=== PATIENT | female | born 1965 | race Caucasian/White ===

== ENCOUNTER → 2018-03-04 09:36 | Outpatient (CLI) | payer OTHER, SELFPAY ==
[2018-03-04 10:14] LABS: Influenza A and B by PCR Rapid Negative (Negative)
== END ==
PROVIDERS: PCP Family Medicine; Visit Provider Physician Assistant
DX: R50.9 Fever, unspecified (principal)
CPT/HCPCS: 87400

== ENCOUNTER → 2018-03-06 09:26 | Outpatient (CLI) | payer OTHER, SELFPAY | PROVIDERS: PCP Family Medicine; Visit Provider Family Medicine | DX: R23.8 Other skin changes (principal) | CPT/HCPCS: 87252 ==

== ENCOUNTER 2018-06-29 03:55 | Emergency (ER) | payer OTHER, SELFPAY ==
[2018-06-29 04:03] VITALS: BMI 29.2
[2018-06-29 04:04] VITALS: BP 158/85; PULSE 65; RESP 20; TEMP 36.6; O2SAT 97
--- NOTE | 2018-06-29 04:12 | DI.CT.S_ITS ---
PROCEDURE: CT ABDOMEN PELVIS W CON INDICATIONS: severe abdominal pain, mostly upper TECHNIQUE: After the administration of intravenous contrast, 5 mm thick sections acquired from the diaphragm to the symphysis. 5 mm coronal and sagittal reformats were acquired. For radiation dose reduction, the following was used: automated exposure control, adjustment of mA and/or kV according to patient size. COMPARISON: None. FINDINGS: Image quality: Excellent. ABDOMEN: Lung bases: Lung bases are clear. Heart size is normal. Solid organs: Diffuse fatty infiltration of the liver. Gallbladder negative. Biliary system is non dilated. Pancreas enhances normally. Spleen is normal in size and enhancement. No adrenal nodules. Kidneys demonstrate normal size and enhancement, without hydronephrosis. Peritoneum and bowel: Bowel loops demonstrate normal wall thickness and caliber. No free fluid or air. Nodes and vessels: No retroperitoneal or mesenteric adenopathy by size criteria. Aorta and inferior vena cava are normal in size. Miscellaneous: No ventral hernias. PELVIS: Genitourinary: Bladder wall thickness is normal. Miscellaneous: No inguinal hernias or adenopathy. Bones: No suspicious bony lesions. No vertebral body compression fractures. Lower lumbar spondylosis, with presumed early multiple small Schmorl's nodes IMPRESSION: No acute process. Normal appendix. No specific visualized etiology for upper abdominal pain. Hepatic steatosis. Additional chronic and incidental findings as above. Dictated by: Jc Peña M.D. on 06/29/2018 at 8:09 Approved by: Jc Peña M.D. on 06/29/2018 at 8:15
[2018-06-29] MEDS: HYDROMORPHONE 1 MG INJ 0.5 MG IV ×3 (04:15→07:27)
[2018-06-29] MEDS: SODIUM CHLORIDE 0.9% 1,000 ML 150 ML IV (04:16)
--- NOTE | 2018-06-29 04:17 | ED_ITS ---
HPI - Abdominal Pain General Chief Complaint: Abdominal Pain Stated Complaint: woke up with stabbing pain back and abd Time Seen by Provider: 06/29/18 04:07 Source: patient Mode of arrival: ambulatory Limitations: no limitations History of Present Illness HPI narrative: Patient is a 52-year-old female who presents with severe abdominal pain. He states it woke her from her sleep it is all across her abdomen radiating through to her back. His she has some nausea no vomiting the pain is quite intense. Never had anything like this in the past. She was fine when she went to bed. She had some was on and a salad at a restaurant for dinner. The pain is intense she is crying. MD complaint: abdominal pain Pain Consistency: constant Location: epigastric Severity: severe Severity scale (1-10): 10 Quality: stabbing Radiation: back Migration to: no migration Relieving factors: nothing Exacerbating factors: nothing Related Data Previous Rx's Medication Instructions Recorded hydrocodone-acetaminophen [[place]] 1 tab PO Q4-6H PRN #10 tab 06/29/18 Allergies Allergy/AdvReac Type Severity Reaction Status Date / Time psuedophedrine Allergy Unknown Uncoded 03/21/18 09:11 Review of Systems Review of Systems GENERAL: Denies chills, fatigue, malaise, fever, sweats, travel HEENT: Denies sinus pain, ear pain, sore throat, difficulty swallowing, neck pain RESPIRATORY: Denies dyspnea, cough, wheezing, hemoptysis, sputum. CARDIOVASCULAR: Denies chest pain, palpitations, orthopnea, edema GASTROINTESTINAL: HPI : Denies dysuria, frequency, incontinence, hematuria, urinary retention, flank pain. MUSCULOSKELETAL: Denies weakness, joint pain, or bony pain SKIN: No rash, no erythema, no pruritus NEUROLOGIC: Denies weakness, dizziness, headache, numbness, change in speech, confusion PSYCHIATRIC: No concerning psychosocial issues. 12 point review of systems is negative except for those stated above and HPI PFSH Family History (Updated 10/16/16 @ 00:00 by Conversion Provider) Father Age: 81 Epilepsy Social History Smoking Status: Never smoker Exam Initial Vital Signs Initial Vital Signs: Vital Signs Temperature 97.8 F 06/29/18 04:04 Pulse Rate 65 06/29/18 04:04 Respiratory Rate 20 06/29/18 04:04 Blood Pressure 158/85 H 06/29/18 04:04 Pulse Oximetry 97 06/29/18 04:04 GENERAL: Patient appears in pain tearful and in no acute distress. HEENT: Head atraumatic,EOMI, pupils reactive, face symmetric, mucous membranes CARDIOVASCULAR: Regular rate and rhythm without murmurs, rubs or gallops. RESPIRATORY: Breath sounds equal bilaterally, no wheezes rales or rhonchi. ABDOMEN: Soft, severe tenderness across the epigastric and umbilical region. No real lower abdominal tenderness no guarding no rebound : No CVA tenderness EXTREMITIES: Normal range of motion, no clubbing or edema. Neurovascularly intact NEUROLOGICAL: Alert and oriented x4.Normal gait and speech. Cranial nerves II through XII grossly intact. SKIN: Warm, dry, no laceration, no petechiae, no rashes or lesions. Course Orders Ordered: Discontinued Medications Hydromorphone HCl (Dilaudid) 0.5 mg IV NOW ONE Stop: 06/29/18 04:13 Last Admin: 06/29/18 04:15 Dose: 0.5 mg Hydromorphone HCl (Dilaudid) 0.5 mg IV NOW ONE Stop: 06/29/18 05:42 Last Admin: 06/29/18 05:46 Dose: 0.5 mg Hydromorphone HCl (Dilaudid) 0.5 mg IV NOW ONE Stop: 06/29/18 07:27 Last Admin: 06/29/18 07:27 Dose: 0.5 mg Sodium Chloride (Normal Saline 0.9%) 1,000 mls @ 150 mls/hr IV CONT APPLE Last Infusion: 06/29/18 07:57 Dose: 0 mls/hr Admin: 06/29/18 04:16 Dose: 150 mls/hr Ondansetron HCl (Zofran) 4 mg IV NOW ONE Stop: 06/29/18 04:13 Last Admin: 06/29/18 05:45 Dose: 4 mg Pantoprazole Sodium (Protonix) 40 mg IV NOW ONE Stop: 06/29/18 05:42 Last Admin: 06/29/18 05:48 Dose: 40 mg Vital Signs - 8 hr 06/29/18 04:04 06/29/18 07:04 Temperature 97.8 F 97.5 F L Pulse Rate 65 58 L Respiratory Rate 20 15 Blood Pressure [Left Arm] 158/85 H 130/56 L Pulse Oximetry 97 100 MDM - Abdominal Pain Lab Data Attestation: I reviewed the patient's lab results. Result diagrams: 06/29/18 04:05 06/29/18 04:05 Lab Results 06/29/18 06/29/18 Range/Units 04:05 04:05 WBC 9.6 (4.5-11.0) X10^3/uL RBC 5.08 (4.0-5.2) X10^6/uL Hgb 14.9 (12.0-16.0) g/dL Hct 44.1 (36-46) % MCV 86.7 (80-100) fL MCH 29.3 (26-34) PG MCHC 33.7 (30-36) % RDW 12.8 (11.6-14.8) % Plt Count 345 (150-400) X10^3/uL Neut % (Auto) 55.4 (50-75) % Lymph % (Auto) 35.8 (25-40) % Morton % (Auto) 6.1 (3-14) % Eos % (Auto) 2.0 (2-4) % Baso % (Auto) 0.7 (0-2) % Neut # (Auto) 5300 (9900-9114) /uL Lymph # (Auto) 3400 (0375-1850) /uL Morton # (Auto) 600 (0-900) /uL Eos # (Auto) 200 (0-450) /uL Baso # (Auto) 100 (0-100) /uL Sodium 141 (137-145) mmol/L Potassium 4.0 (3.4-5.1) mmol/L Chloride 103 (98-107) mmol/L Carbon Dioxide 28 (22-32) mmol/L BUN 20 H (7-17) mg/dL Creatinine 1.00 (0.52-1.04) mg/dL Estimated GFR 58.5 L (>60) mL/min BUN/Creatinine Ratio 20.0 (6-22) Glucose 103 H (70-100) mg/dL Calcium 9.4 (8.4-10.2) mg/dL Total Bilirubin 0.4 (0.2-1.3) mg/dL AST 33 (14-36) IU/L ALT 48 (9-52) IU/L Alkaline Phosphatase 209 H (38-126) U/L Total Protein 8.0 (6.3-8.2) g/dL Albumin 4.7 (3.5-5.0) g/dL Globulin 3.3 (1.7-4.1) g/dL Albumin/Globulin Ratio 1.4 (1.0-2.8) Lipase 199 (23-300) U/L Point of care testing: Urine Dip Bedside Urine Glucose Negative Bedside Urine Bilirubin - Negative Bedside Urine Ketone - Negative Urine Specific [place] 1.015 Bedside Urine Occult Blood - Negative Bedside Urine pH 6.0 Bedside Urine Protein - Negative Bedside Urine Urobilinogen - Negative Bedside Urine Nitrite - Negative Bedside Urine Leukocytes - Negative Esterase Imaging Data CT scan - abdomen: Radiologist's impression: retail shift supervisor report: No evidence of colitis diverticulitis bowel obstruction obstructive uropathy or acute appendicitis. Hepatic steatosis. The gallbladder pancreas spleen and adrenal glands and kidneys are normal. US - abdomen: Radiologist's impression: Patient report: Hepatic steatosis and the hepatomegaly. Cholelithiasis MDM Narrative Medical decision making narrative: Patient is still having some discomfort given [place] to go home with. She does have gallstones but no signs of acute cholelithiasis or any blockage. I discussed at this time she will need elective surgery. I discussed warning signs and when to return to the ED. Discharge Plan Departure Patient Disposition: Home Clinical Impression: Cholelithiasis Qualifiers: Cholelithiasis location: gallbladder Cholecystitis presence: without cholecystitis Biliary obstruction: without biliary obstruction Qualified Code(s): K80.20 - Calculus of gallbladder without cholecystitis without obstruct ion Discharge Date/Time: 06/29/18 08:26 Interventions: ED Discharge Assessment Last Done: 06/29/18 08:13 Instructions: DI for Gallstones Activity Restrictions/Additional Instructions: *You have been diagnosed with gallstones *What to do: You will need her gallbladder removed. I have multiple stones in it which is likely causing the pain. However it is not emergent at this time. *Continue to take medications as directed [place] 1 tablet every 4-6 hours if needed for severe pain *Follow up with your primary care provider in 2-3 days *Return to ER if you should have fever, increasing pain, persistent vomiting or any new, worsening or concerning symptoms CONTROLLED SUBSTANCE DISCHARGE (Narcotoic/benzodiazepine/Flexeril/Phenergan) 1. You have been prescribed narcotic medications, it does have acetaminophen/Tylenol/paracetamol in it so do not take extra Tylenol or Tylenol containing products 2. Please understand that we cannot provide further refills of narcotics, benzodiazepines or controlled substances through the ED and her pain management will need to be through your provider. 3. While on these medications you cannot drive or operate heavy machinery. 4. You cannot sign legal documents or perform any duties such as this. 5. As long as you're taking opiate pain medications he should also be taking a stool softener such as Colace, Dulcolax, MiraLAX or prune juice, to help avoid constipation. Prescriptions: New hydrocodone-acetaminophen [[place]] 5-325 mg tablet 1 tab PO Q4-6H PRN (Reason: pain) Qty: 10 RF: 0 Referrals: Eleni Garrett DO [Primary Care Provider] -
[2018-06-29 04:19] LABS: Add Manual Diff / Slide Review NO; Basophils Absolute Auto 100 /uL (0-100); Basophils Percent Auto 0.7 % (0-2); Eosinophils Absolute Auto 200 /uL (0-450); Hematocrit 44.1 % (36-46); Hemoglobin 14.9 g/dL (12.0-16.0); Lymphocytes Absolute Auto 3400 /uL (1100-4500); Lymphocytes Percent Auto 35.8 % (25-40); Mean Corpuscular HGB Conc 33.7 % (30-36); Mean Corpuscular Hemoglobin 29.3 PG (26-34); Mean Corpuscular Volume 86.7 fL (80-100); Monocytes Absolute Auto 600 /uL (0-900); Monocytes Percent Auto 6.1 % (3-14); Neutrophils Absolute Auto 5300 /uL (1500-7000); Neutrophils Percent Auto 55.4 % (50-75); Platelet Count 345 X10^3/uL (150-400); Red Blood Cell Count 5.08 X10^6/uL (4.0-5.2); Red Cell Distribution Width 12.8 % (11.6-14.8); White Blood Cell Count 9.6 X10^3/uL (4.5-11.0)
[2018-06-29 04:31] LABS: Alanine Aminotransferase 48 IU/L (9-52); Albumin 4.7 g/dL (3.5-5.0); Albumin Globulin Ratio 1.4 (1.0-2.8); Alkaline Phosphatase 209 U/L (38-126); Aspartate Aminotransferase 33 IU/L (14-36); Bilirubin Total 0.4 mg/dL (0.2-1.3); Blood Urea Nitrogen 20 mg/dL (7-17); Calcium 9.4 mg/dL (8.4-10.2); Carbon Dioxide 28 mmol/L (22-32); Chloride 103 mmol/L (98-107); Estimated Glomerular Filt Rate 58.5 mL/min (>60); Globulin 3.3 g/dL (1.7-4.1); Glucose 103 mg/dL (70-100); HEMOLYSIS 23 (0-50); Lipase 199 U/L (23-300); Sodium 141 mmol/L (137-145)
--- NOTE | 2018-06-29 05:41 | DI.US.S_ITS ---
PROCEDURE: US ABDOMEN LIMITED INDICATIONS: RIGHT UPPER QUADRANT PAIN TECHNIQUE: Real-time focused scanning was performed of the abdomen, with image documentation. COMPARISON: None. FINDINGS: Mild hepatic steatosis. No focal hepatic lesion. Liver measures 18.0 cm in length. There are gallstones present however no definite gallbladder wall thickening or sonographic Olivera sign. No pericholecystic fluid identified. No evidence of biliary ductal dilatation. Pancreas is grossly unremarkable. IMPRESSION: Cholelithiasis although no other sonographic criteria for acute cholecystitis. Please correlate clinically and with LFTs. Mild hepatic steatosis. Dictated by: Jc Peña M.D. on 06/29/2018 at 9:12 Approved by: Jc Peña M.D. on 06/29/2018 at 9:14
[2018-06-29] MEDS: ONDANSETRON 4 MG/2 ML INJ IV (05:45)
[2018-06-29] MEDS: PANTOPRAZOLE 40 MG VIAL IV (05:48)
[2018-06-29 07:04] VITALS: BP 130/56; PULSE 58; RESP 15; TEMP 36.4; O2SAT 100
== END 2018-06-29 08:26 | disposition home or self-care (01) ==
PROVIDERS: Emergency Provider Emergency Medicine; PCP Family Medicine
DX: K80.20 Calculus of gallbladder without cholecystitis without obstruction (principal); R11.0 Nausea; M54.9 Dorsalgia, unspecified; R10.13 Epigastric pain
CPT/HCPCS: 36591; 74177; 76705; 80053; 81003; 83690; 85025; 93005; 96361; 96374; 96375; 96376; 99283; 99285; C9113; J1170; J2405; Q9967

== ENCOUNTER 2018-07-04 12:58 | Observation (INO) | payer OTHER, SELFPAY ==
[2018-07-04] VITALS (23 sets, daily range): BP systolic 126–156; BP diastolic 63–85; PULSE 63–729; RESP 15–24; TEMP 35.7–36.9; O2SAT 94–100; BMI 30.8
--- NOTE | 2018-07-04 | PATH_ITS ---
[facility] Accession Number: [id number] . 01 Material submitted: . gallbladder - GALLBLADDER AND CONTENTS . 02 Diagnosis: Gallbladder and Contents, Laparoscopic Cholecystectomy: Acute, chronic and gangrenous cholecystitis and cholelithiasis. MRV/07/06/2018 . 02 Electronically signed: . Tory Allen MD, Pathologist NPI- [id number] . 01 Gross description: . Received in formalin, labeled gallbladder and contents, is an opened gallbladder (length-6.5 cm, diameter-3.0 cm) with beckwith-brown smooth shiny serosa and a patent cystic duct. No lymph nodes are identified. The lumen contains multiple bright yellow bosselated friable calculi (2.8 x 1.7 x 1.0 cm in aggregate). The mucosa is brown and rough with focally green smooth flat areas. The wall is up to 0.2 cm thick. No nodules, masses or lesions are identified. Section code: (A1) cystic duct resection margins and two serial sections from the body; (A2) two longitudinal sections from the fundus. ([id number]) /MRV . 02 Pathologist provided ICD-10: K81.2 . 02 CPT . 502218 Performed at: 01 [facility] [address], [place], [place] [id number] MD Richard Garcia MD Phone: [phone] Performed at: 02 [facility] [address] [place], [place] [id number] MD Gina Ramos MD Phone: [phone]
[2018-07-04] MEDS: LACTATED RINGERS 1,000 ML 42 ML IV ×2 (13:20→15:48)
--- NOTE | 2018-07-04 13:51 | PM.PREOP ---
Pre-operative Note Interval Note History & Physical reviewed/Exam performed by Physician: Yes Changes to H&P: No
[2018-07-04] MEDS: CEFOTETAN 2 GM/50 ML PIGGYBACK IV (14:38)
--- NOTE | 2018-07-04 15:05 | SUR.OPER ---
Supine on padded OR bed, head on pillow, right arm padded and tucked at side, left arm on armboard, legs uncrossed, safety belt at thigh, tape over blanket over lower legs .
[2018-07-04] MEDS: BUPIVACAINE 0.25% W/ EPI (PF) 10 ML VIAL INJ (15:17)
[2018-07-04] MEDS: HYDROMORPHONE 2 MG INJ 0.5 MG IV ×4 (17:20→17:41)
--- NOTE | 2018-07-04 17:27 | SUR.PHASEI ---
Assumed care from JENISE Goodwin. Pt c/o pain in abdomen and being medicated with dilaudid.
[2018-07-04] MEDS: fentaNYL 100 MCG/2 ML INJ 50 MCG IV ×2 (17:34→17:46)
[2018-07-04] MEDS: MORPHINE 10 MG/ML INJ 2 MG IV ×3 (17:57→18:31)
--- NOTE | 2018-07-04 18:00 | SUR.PHASEI ---
Dilaudid and fentanyl given for pain with no improvment, dr Fitzgerald to bedside, verbal order for morphine given, and being administered.
--- NOTE | 2018-07-04 18:13 | PM.OP.1 ---
Operative Date/Time/Diagnoses Date of procedure: 07/04/18 Time of procedure: 17:13 Pre-op diagnosis: Cholecystitis, possible choledocolithiasis Post-op diagnosis: other (Cholecystitis) Procedure & Clinicians Procedure: 1. Laparoscopic Cholecystectomy 2. Attempted Cholangiogram Same procedure as scheduled: Yes Indications: 52yo F seen yesterday in clinic after an ED referral for cholelithiasis. She has been in pain for 4 days and had an elevated alk phos so likely has cholecystitis with underwhelming ultrasound and she may have choledocolithiasis. Benefits, alternatives, and risks including bleeding, infection, damage to nearby structures, failure of procedure, and need for other procedures were discussed with the patient. Patient voiced understanding and wished to proceed. Surgeon: Maria De Jesus Iglesiasr Click Yes if Unassisted: Yes Anesthesia Type: General Operative Notes Findings: 1. Gangrenous cholecystitis 2. Sludge in cystic duct 3. Unable to cannulate duct for cholangiogram due to debris 4. Fatty liver Closure Type: primary Specimen(s): other (gallbladder) Estimated Blood Loss (mL): 50 Blood products transfused: none Procedure in detail: The patient was taken to the operating room and placed on operating table in supine position. The abdomen was prepped and draped in sterile fashion and a time out is performed with the team present. Local anesthesia was used to infiltrate each site prior to incision. Using a 15-blade scalpel, a small 5 mm incision was made just to the right of the umbilicus. Using a 5 mm Optiview camera port, the laparoscope was inserted into the abdomen. Once confirmed to be within the peritoneal cavity, the abdomen was insufflated with air. Initial diagnostic laparoscopy showed no injury from initial trocar placement. Three secondary trocars were then placed in the following locations: a 5mm trocar was then placed in the right lateral subcostal margin, a 5mm trocar in the right midclavicular line, and an 11 mm trocar was placed in the midline in the midepigastric area. A blunt grasper was then used to retract the fundus of the gallbladder up over the dome of the liver. A second blunt grasper was used to retract the infundibulum caudally. The gallbladder was gangrenous and highly inflamed. The wall perforated with grasping and elevated and bile spilled, decompressing the gallbladder. Using blunt dissection and electrocautery, the cystic duct and cystic artery were identified. This was quite tedious due to the inflammation which led to quite a bit of ongoing bloody oozing. It was also difficult due to its placement somewhat intrahepatic in a large and fatty liver. A large stone was also present in the infundibulum, lodged above the short cystic duct. Manipulation led to a liver laceration controlled with cautery. Once identified, the cystic duct and artery were circumferentially cleaned distally and proximally. The critical view was seen. Once adequate length was obtained, the cystic artery was doubly clipped proximally and singly clipped distally and then transected using hook scissors. Attempts to milk the impacted stone were unsuccessful and the short but wide cystic duct was palpably full of sludge. The cystic duct was then clipped proximally under the stone. A small ductotomy was made using laparoscopic hook scissors. The duct was full of yellow sludge and bits of stone. This was attempted to be milked out but was only minimally successful. The cholangiogram catheter was inserted and was then placed into the cystic duct and a clip was placed to secure it but it would not fully fit across the wide and debris-filled duct. Despite numerous attempts, it was unable to be placed through the debris such that there was no leakage so it was aborted. Given the width of the cystic duct, a 1-PDS Endoloop was used to secure the cystic duct stump after transection of the gallbladder. The remaining peritoneal attachments of the gallbladder and the liver bed were taken down using electrocautery. Once free, the gallbladder was placed into an EndoCatch retrieval bag and removed through the 11 mm port. This required minimal dilatation with a Pinky clamp in order to remove the specimen. The gallbladder was then passed off as a specimen. The right upper quadrant was suctioned free of any free fluid and hemostasis ensured. The 11mm port site fascia was reapproximated using an EndoClose device and an 0-Vicryl suture. The remainder of the local anesthesia was used to provide local analgesia over each of the port sites. The secondary trocars were removed under direct vision noting no bleeding. The abdomen was allowed to desufflate fully. The final trocar was removed. The skin incisions were then reapproximated using 4-0 Monocryl in an interrupted subcuticular fashion. The abdomen was cleaned and dried and steri strips were placed over each of the incisions. The patient was awakened and taken to the postanesthesia care unit in stable condition. All counts were correct at the end of the procedure. Complications: other (unable to cannulate cystic duct for planned cholangiogram due to debris) Condition: stable Disposition: observation Plan for aftercare: Patient wishes to stay overnight as she lives alone so will admit for observation.
[2018-07-04] MEDS: ONDANSETRON 4 MG/2 ML INJ IV (18:19)
--- NOTE | 2018-07-04 19:03 | SUR.PHASEI ---
Better repomse to morphine, report attempted, rn unavailable will call back. Abdomen remains unchanged, sites c/d/i.
--- NOTE | 2018-07-04 19:43 | SUR.PHASEI ---
late entry: 1909 rn called as no call back , face to face done at bedside. Pt transported up on room air and left in stable condiiton.
[2018-07-04] MEDS: SODIUM CHLORIDE 0.9% 1,000 ML 100 ML IV (20:11)
[2018-07-04] MEDS: OXYCODONE/ACETAMINOPHEN 5/325 TABLET 1 TAB PO (21:56)
[2018-07-05] MEDS: HYDROMORPHONE 0.5 MG INJ IV ×2 (00:18→04:19)
[2018-07-05 00:37] VITALS: O2SAT 95
[2018-07-05] MEDS: OXYCODONE/ACETAMINOPHEN 5/325 TABLET 1 TAB PO ×3 (02:54→14:50)
[2018-07-05] MEDS: ACETAMINOPHEN 325 MG TABLET 650 MG PO (02:55)
[2018-07-05] MEDS: SODIUM CHLORIDE 0.9% FLUSH 10 ML IV (04:22)
[2018-07-05 04:45] VITALS: BP 146/72; PULSE 71; RESP 16; TEMP 36.8; O2SAT 96
--- NOTE | 2018-07-05 05:21 | PC.NURSE ---
Addendum entered and electronically signed by Gale Stveens R.N. 07/05/18 06:53: Pt can't swallow pills, needs a carrier. Original Note: Pt. is co-operative and anxious. Having a hard time with pain control. Coming on shift her IV site was leaking, upon inspection, lumen wasn't connected all the way, it was tightened and new dressing and securement were applied. After new IV site was fixed, pt was given IV dilaudid 0.5mg. Pt continues to have Q4 percocet and Q4 dilaudid, still complains of pain 6/10 when moving. She was up to the bedside commode and voided 800mls of urine at 0500, this caused great pain getting up. Lung sounds clear, VSS, incision site is clean/dry and intact. CMS intact.
[2018-07-05 08:00] VITALS: BP 138/62; PULSE 69; RESP 16; TEMP 36.3; O2SAT 94
[2018-07-05 08:30] VITALS: O2SAT 97
--- NOTE | 2018-07-05 10:08 | CM.DANOTE ---
DCP: Case received, EMR reviewed and met with patient. Introduced self and role. DCP template was completed with information currently available. Patient is a 52 year old female who admitted yesterday to the care of the surgical team. PCP: Dr. Garrett. Payer: confirmed: [facility]. Patient came to hospital for a surgical procedure. She had Laproscopic Jessa done yesterday. She stated that she had been having severe lower abdominal pain. Met with her in her room. Stated that she lives alone, but has friends that can help her out if needed. Stated, she was still having a lot of pain. P: DCP to continue to follow. Should be able to go home when she is medically stable and her pain is under control. Silke Jenkins RN/[employer]
[2018-07-05 12:01] VITALS: BP 130/67; PULSE 72; RESP 16; TEMP 37.2; O2SAT 96
--- NOTE | 2018-07-05 13:45 | PM.DS.1 ---
History of Present Illness Date Patient Seen: 07/05/18 Time Patient Seen: 11:45 Chief complaint: [id number] Narrative: 52yo F with cholecystitis. Discharge Providers Date of admission: 07/04/18 12:58 Discharge Date: 07/05/18 Primary care physician: Eleni Garrett DO Discharge provider: Maria De Jesus Myers MD Summary Discharge Diagnosis: Pt admitted after semi-elective lap geetha. She was seen in clinic the day before and scheduled quickly due to ongoing symptoms concerning for cholecystitis and/ or choledocolithiasis. Her gallbladder was gangrenous and the cholangiogram was unable to be completed due to high volume debris in her cystic duct. She was kept overnight for monitoring as she lives alone and has no help at home and her high degree of inflammation will make her more sore. She was discharged tolerating a diet and ambulatory. Status at Discharge Cognitive/behavioral status at discharge: at baseline, oriented Overall status at discharge: patient is progressing back to baseline Time Spent with Patient Less than 30 minutes Exam Vital Signs (past 8 hours): - 07/05/18 08:00 07/05/18 08:30 07/05/18 12:01 Temperature 97.3 F L 99 F Pulse Rate 69 72 Respiratory Rate 16 16 Blood Pressure 138/62 130/67 Pulse Oximetry 94 97 96 Oxygen Delivery Method Room Air Oxygen Flow Rate 0 Narrative Exam Narrative: AAO, NAD, overweight female EOMI, MMM, no scleral icterus unlabored RA soft, nt/nd, inc c/d/i MAEW visible skin dry and intact Discharge Plan Discharge Plan Patient Disposition: Home Discharge Med Rec/Prescriptions Prescriptions: New ibuprofen 800 mg tablet 800 mg PO TID Qty: 30 RF: 0 oxycodone-acetaminophen [Percocet] 5-325 mg tablet 1 tab PO Q4-6H PRN (Reason: pain) Qty: 30 RF: 0 docusate sodium [Colace] 100 mg capsule 100 mg PO BID Qty: 60 RF: 0 Continued multivitamin capsule 1 cap PO DAILY RF: 0 Follow up/Referrals: Eleni Garrett DO [Primary Care Provider] - Maria De Jesus Myers MD [Physician] - 07/19/18 1:15 pm (appt:07/19 check in 1:15 for a 1:[address] myers) Provider Discharge Instructions Diet: Diet as Tolerated Skin/Wound/Dressing Care Skin care: ok to shower Visit Report/Discharge Packet Instructions: DI for Cholecystectomy, DI for Laparoscopy Discharge Data Primary Care Provider: Eleni Garrett Attending Provider: Maria De Jesus Myers Admsantos Date/Time: 07/04/18 12:58
== END 2018-07-05 15:17 | disposition home or self-care (01) ==
LOC: OR 13:54 → AC 07-05 13:23
PROVIDERS: Admitting Provider Surgery; PCP Family Medicine; Visit Provider Surgery
PROC: 0FT44ZZ Resection of Gallbladder, Percutaneous Endoscopic Approach (ICD-10-PCS; CPT 47562; principal; 2018-07-04 14:15)
DX: K80.12 Calculus of gallbladder with acute and chronic cholecystitis without obstruction (principal); K82.A1 Gangrene of gallbladder in cholecystitis
CPT/HCPCS: 47562; G0378; J0330; J1100; J1170; J2270; J2405; J2704; J3010